=== PATIENT | male | born 1955 | race Two or more races ===

== ENCOUNTER 2022-11-18 22:51 | Observation (INO) | payer BC, MEDICAID ==
[~2022-11-18] VITALS: Ht 160 cm; Wt 93.0 kg
[2022-11-19] VITALS (7 sets, daily range): BP systolic 99–113; BP diastolic 58–70
[2022-11-19] MEDS ORDERED: MORPHINE SULFATE INJ 2 MG/ml SYRG IV PRN ×2 (02:30)
[2022-11-19] MEDS ORDERED: ACETAMINOPHEN 325 MG TAB PO PRN (02:30)
[2022-11-19] MEDS ORDERED: ONDANSETRON HCL 4 MG/2 ML VIAL IV PRN (02:30)
[2022-11-19] MEDS ORDERED: DOCUSATE SOD 100 MG CAP PO PRN (02:30)
[2022-11-19] MEDS ORDERED: NITROGLYCERIN 0.4 MG SL TAB SL PRN ×2 (02:30)
[2022-11-19] MEDS ORDERED: BACL10TA PO (03:25)
[2022-11-19] MEDS ORDERED: GABA300C10 PO (03:25)
[2022-11-19] MEDS: HYDROcodone-ACET 5/325MG TAB PO PRN ×3 (05:45→15:00)
[2022-11-19 05:51] LABS: Basophils # (auto) 0 10 ^3/uL (0-0.2); Basophils % (auto) 0.5 % (0.0-2.0); Eosinophils # (auto) 0.2 10 ^3/uL (0-0.8); Eosinophils % (auto) 2.5 % (0.0-7.0); Hematocrit 42.8 % (41.0-53.0); Hemoglobin 14.8 g/dL (13.5-17.5); Lymphocytes # (auto) 2.6 10 ^3/uL (0.4-5.4); Lymphocytes % (auto) 30.5 % (10.0-50.0); Mean Corpuscular Hemoglobin 31.1 pg (28.0-32.0); Mean Corpuscular Hgb Conc. 34.6 g/dL (32.0-36.0); Mean Corpuscular Volume 90.1 fL (80.0-100.0); Monocytes # (auto) 0.8 10 ^3/uL (0-1.3); Monocytes % (auto) 9.9 % (0.0-12.0); Neutrophils # (auto) 4.8 10 ^3/uL (1.6-8.6); Neutrophils % (auto) 56.6 % (37.0-80.0); Red Blood Cells 4.75 10^6/uL (4.5-5.90); Red Cell Distribution Width 13.7 % (11.8-14.3); White Blood Cell 8.4 10^3/uL (4.4-10.8)
[2022-11-19 06:16] LABS: Potassium 3.9 mmol/L (3.5-5.1)
[2022-11-19 06:22] LABS: BUN/Creatinine Ratio 14.8; Calcium 8.6 mg/dL (8.5-10.1)
[2022-11-19] MEDS ORDERED: ASPirin 81 mg TAB PO SCH (10:00)
[2022-11-19] MEDS ORDERED: PANTOPRAZOLE 40 MG/10 ML VIAL INJ IV SCH (10:00)
[2022-11-19] MEDS ORDERED: ENOXAPARIN SOD 40 MG/0.4 ML SYRINGE SC SCH (10:00)
[2022-11-19] MEDS ORDERED: METOPROLOL TARTRATE 25 MG TAB PO SCH (10:00)
[2022-11-19] MEDS ORDERED: KETOROLAC TROMETH 30 MG/ML 1ML VIAL IV ONE (16:00)
[2022-11-19] MEDS ORDERED: ATORVASTATIN 20 MG TAB PO SCH (22:00)
== END 2022-11-19 21:01 | disposition home or self-care (01) ==
LOC: UNDOADMIN 11-19 01:52 → TELE-CENTR 11-19 01:52 → TELE 11-19 02:42 → UNDODISIN 11-19 21:01
PROVIDERS: ADMIT Nurse Practitioner Family; ATTEND Nurse Practitioner Family
DX: R07.89 Other chest pain (principal); Z20.822 Contact with and (suspected) exposure to COVID-19; G89.4 Chronic pain syndrome; Z88.0 Allergy status to penicillin; Z87.891 Personal history of nicotine dependence; Z79.899 Other long term (current) drug therapy
CPT/HCPCS: 36415; 80048; 84484; 85025; 87081; 87426; 93005; 93306; 96374; 96375; C9113; G0378; J1885; J2270